=== PATIENT | female | born 1955 | race African-American/Black ===

== ENCOUNTER → 2017-03-11 | Outpatient (CLI) | payer OTHER ==
[~2017-03-11] VITALS: Ht 157.5 cm; Wt 56.7 kg
[~2017-03-11] MED LIST: ADVAIR 250-501 EACH INH; AMITRIPTYLINE H10 M1; ASA5UEC PO; ASPIR 8181 MG PO; ASPIRIN325 PO; ATORVASTATIN CA40 MG PO; DEXILANT60 MG PO; DIOVAN HCT 80-1 EACH PO; EFFIENT10 MG PO; HYDROCHLOROTHIA25 M1 PO; KAPIDEX30 MG PO; LOPRESSOR; LOPRESSOR50 PO; LORTAB 5 MG/5001 TA1 PO; MECLIZINE 25 MG25 M1 PO; NITROSTAT0.4 M1 SL; PHENERGAN 25 MG25 M1 PO; VENTOLIN HFA 1818 GM INH; ZOCOR40 MG PO
--- NOTE | ~2017-03-11 | P ---
[facility] [place] [address] PROCEDURE REPORT Name: CHE STEWARD Cory Room #: REG [facility]#: [id number] Admission: 03/11/17 Attend Phys: Levi Lawrence Discharge: Date of : 55 Report #: [id number] THIS REPORT FOR: //name// CC: Levi Schuster MD DATE OF SERVICE: 03/11/2017 PROCEDURE PERFORMED: Colonoscopy with biopsies. HISTORY OF PRESENT ILLNESS: The patient is a 61-year-old female with a history of colon polyps on colonoscopy in 2010, which was a tubular adenoma. She is here for a followup. She denies any symptoms. No family history of colon cancer. PROCEDURE: The risks and benefits of the procedure were explained to the patient, those risks including, but not limited to bleeding, perforation, the risk of sedation. She understood these risks and gave informed consent. Sedation was given using propofol per anesthesia. Next, a digital rectal exam was initially performed, which was normal. Next, using a standard Fujinon colonoscope, the scope was placed in the patient's anus and advanced under direct vision to the cecum. The overall prep was good. The cecum and ileocecal valve were normal in appearance. The ascending, transverse, and descending colon were all normal. Multiple diverticula were noted in the sigmoid colon, no evidence of inflammation. A single 4-mm sessile polyp was noted in the sigmoid colon and removed with cold forceps. The rectal mucosa was normal. On retroflexion, no abnormalities were noted. The scope was then withdrawn and the procedure terminated. The patient tolerated the procedure well. IMPRESSION: 1. Sigmoid diverticulosis. 2. Sigmoid colon polyp. 3. Otherwise, normal colonoscopy. RECOMMENDATIONS: 1. Await biopsy results. 2. If polyp is hyperplastic, repeat colonoscopy in 10 years; if adenomatous polyp, repeat in 5 years. Thank you for allowing me to participate in her care. By: 0901 [id number] Levi Delgadillo MD /nt
--- NOTE | ~2017-03-11 | EKG ---
[address] [address] ELECTROCARDIOGRAM REPORT Name: CHE STEWARD Cory [id number] Admission: 03/11/17 Attend Phys: Levi Lawrence Discharge: Date of : 55 Report #: [id number] THIS REPORT FOR: //name// [facility] Test Date: 2017-03-11 Test Time: 07:42:38 Pat Name: CHE STEWARD Department: Room: Gender: F Stamp Analyst: PADMINI : 1955 Requested By: Levi Delgadillo Order Number: [id number] MD: Rishi Haney Measurements Intervals [place] Rate: 62 P: 55 VT: 145 QRS: -42 QRSD: 96 T: 46 QT: 411 QTc: 418 Interpretive Statements Sinus rhythm Left axis deviation Compared to ECG 05/03/2016 22:59:43 Left-axis deviation now present ST and T wave abnormality is no longer present Electronically Signed On 03-11-2017 8:02:48 CDT by Rishi Haney [email or web address] <ELECTRONICALLY SIGNED> By: Rishi Haney MD, [facility] [id number] Rishi Haney MD, [facility] /EPI
== END | disposition home or self-care (01) ==
LOC: GI 06:53
DX: D12.5 Benign neoplasm of sigmoid colon (principal); K57.30 Diverticulosis of large intestine without perforation or abscess without bleeding; Z86.010 Personal history of colon polyps; J45.909 Unspecified asthma, uncomplicated; I10 Essential (primary) hypertension; I20.9 Angina pectoris, unspecified; E78.00 Pure hypercholesterolemia, unspecified; K21.9 Gastro-esophageal reflux disease without esophagitis; E11.9 Type 2 diabetes mellitus without complications; Z98.51 Tubal ligation status

== ENCOUNTER → 2018-04-26 | Outpatient (CLI) | payer OTHER ==
[~2018-04-26] VITALS: Ht 157.5 cm; Wt 59.9 kg
[~2018-04-26] MED LIST changes: +ASPIR-LOW81 MG PO; +CRESTOR20 MG PO; +IMDUR 30 MG TAB30 M1 PO; +PLAVIX 75 MG TA75 M1 PO; +TOPROL XL25 MG PO
--- NOTE | ~2018-04-26 | CATHLAB ---
[facility] [address] [place] [address] INVASIVE PROCEDURE REPORT Name: CHE STEWARD Room #: REG [facility]#: [id number] Admission: 04/26/18 Attend Phys: Fabrice Chew Discharge: Date of : 55 Date of Service: 05/01/18 1320 Report #: [id number] THIS REPORT FOR: //name// APPROVED REPORT Study performed: 04/26/2018 10:41:52 Patient Details Patient Status: Out-Patient Room #: The patient is a 62 year-old female Event Personnel Fabrice Morgan Home Care Chaplain, Liu Abarca RN, Nadine Cormier RTR, DONN De Leon, Chaim Nieto Monitor Procedures Performed Coronary Angiography Only [id number] CHRIS FFR [id number] FFR, supervision of conscious sedation Indication Positive stress test, Chest pain Procedure Narrative The Right Groin^ was infiltrated with 1% Lidocaine subcutaneous anesthesia. A PINNACLE 6FR Sheath #[id number] sheath was inserted into the . Coronary angiography was performed using coronary diagnostic catheters. The left coronary system was accessed and visualized with a JL4 catheter. The left ventricle was accessed and visualized with a PIGTAIL catheter. Left ventricular/Aortic Valve gradient assessed via catheter pullback. Closure device was deployed with a 6 Fr MYNXGRIP 6/7F #[id number]. The patient tolerated the procedure well and there were no complications associated with the procedure. Intraoperative Conscious Sedation Sedation start time: 12.00 Case end Time: 12.33 Versed 2 mg Fluoro Time: 4.00 minutes Dose: DAP 2072 cGycm2 287 mGy Contrast Type and Amount: Omnipaque 655 ml Coronary Angiography The patient's coronary anatomy is right dominant. [facility] [address] [place] [address] INVASIVE PROCEDURE REPORT Name: CHE STEWARD Room #: REG [facility]#: [id number] Admission: 04/26/18 Attend Phys: Fabrice Chew Discharge: Date of : 55 Date of Service: 05/01/18 1320 Report #: [id number] Diagnostic Cath Left Main Normal origin and caliber bifurcates left anterior descending left circumflex free of high-grade disease LAD Moderate caliber type II vessel which in its proximal course on one view appears to have a proximal lesion. The vessel continues on without any flow limitation giving rise to septal and diagonal branches as it courses in the anterior interventricular sulcus towards the apex and terminating there are minor irregularities noted Diagonal 1 Small-caliber vessel without significant high-grade lesions Circumflex Moderate caliber vessel with luminal irregularities giving rise to marginal branches free of high-grade disease OM1 Small caliber vessel with luminal irregularity present without flow-limiting lesions noted OM2 Small-caliber vessel without significant obstructive lesions Right Coronary Previous high-grade diffuse disease noted R PDA Visualized from left to right collaterals which are quite some numerous with the PDA been a small string-like vessel. Left Ventriculography Left Ventriculography was not performed. Hemodynamics The aortic pressure is 154/59 mmHg with a mean of 85 mmHg. The left ventricular pressure is 140/8 mmHg with a mean of mmHg. The left ventricular end diastolic pressure is 16 mmHg. There was no gradient across the aortic valve upon pullback. Pullback from the left ventricle to the aorta revealed no gradient across the aortic valve. PCI Technique Lesion A LAUNCHER 6FR JL4 #[id number] Guide Catheter was used to engage the ostium. A StemBioSys Pressure Wire 175 cm [id number] Interventional Guidewire was used to cross the lesion. Conclusion 1. Coronary artery disease single vessel involving a highly diffuse but collateralized right coronary artery 2. Fractional flow reserve assessment negative for ischemia involving the proximal LAD 3. Normal hemodynamics [facility] [address] [place] [address] INVASIVE PROCEDURE REPORT Name: CHE STEWARD Room #: REG CL [facility]#: [id number] Admission: 04/26/18 Attend Phys: Fabrice Chew Discharge: Date of : 55 Date of Service: 05/01/18 1320 Report #: [id number] Recommendations Cardiac Risk Reduction Program <ELECTRONICALLY SIGNED> By: Fabrice Morgan MD 05/01/18 1320 1320 1320 Fabrice Morgan MD /INF
--- NOTE | ~2018-04-26 | EKG ---
[address] [place] [address] ELECTROCARDIOGRAM REPORT Name: CHE STEWARD [id number] Admission: 04/26/18 Attend Phys: Fabrice Morgan Discharge: Date of : 55 Report #: [id number] THIS REPORT FOR: //name// [facility] Test Date: 2018-04-26 Test Time: 10:18:04 Pat Name: CHE STEWARD Department: Room: Gender: F Continuing Education Instructor: : 1955 Requested By: Fabrice Morgan Order Number: [id number] MD: Rishi Haney Measurements Intervals [place] Rate: 55 P: 46 [place]: 160 QRS: -39 QRSD: 99 T: 38 QT: 438 QTc: 419 Interpretive Statements Sinus rhythm Abnormal T, consider ischemia, anterior leads Compared to ECG 03/11/2017 07:42:38 T-wave abnormality now present Electronically Signed On 04-27-2018 8:00:33 CDT by Rishi Haney [email or web address] <ELECTRONICALLY SIGNED> By: Rishi Haney MD, [facility] 04/27/18 0800 [id number] Rishi Haney MD, [facility] /EPI
[2018-04-26 10:07] VITALS: BP 134/67
[2018-04-26 10:28] LABS: HEMOGLOBIN 12.6 gm/dL (12.0-15.0); MCH 27.7 pg (26.0-34.0); MCHC 33.1 g/dL (28.0-37.0); MCV 83.8 fL (80.0-100.0); RBC 4.54 mil/uL (4.20-5.00); RDW 14.1 % (10.5-14.5); WBC 3.4 thou/uL (4.0-11.0)
[2018-04-26 10:32] LABS: CALCIUM 9.6 mg/dL (8.5-10.1); CREATININE 0.9 mg/dL (0.6-1.0); POTASSIUM 3.2 mmol/L (3.5-5.1)
[2018-04-26 10:37] LABS: PROTIME 10.1 Seconds (9.3-11.4)
== END | disposition home or self-care (01) ==
LOC: CATH 07:47
PROVIDERS: Internal Medicine
DX: I25.10 Atherosclerotic heart disease of native coronary artery without angina pectoris (principal); I10 Essential (primary) hypertension; K21.9 Gastro-esophageal reflux disease without esophagitis; E11.9 Type 2 diabetes mellitus without complications; J45.909 Unspecified asthma, uncomplicated; E78.00 Pure hypercholesterolemia, unspecified; Z82.49 Family history of ischemic heart disease and other diseases of the circulatory system; Z91.041 Radiographic dye allergy status; Z98.890 Other specified postprocedural states; Z90.710 Acquired absence of both cervix and uterus; Z88.8 Allergy status to other drugs, medicaments and biological substances; Z79.82 Long term (current) use of aspirin; Z98.51 Tubal ligation status; Z79.899 Other long term (current) drug therapy

== ENCOUNTER → 2020-08-06 | Outpatient (CLI) | payer MEDICARE | LOC: RAD 11:26 | PROVIDERS: ATTEND Family Medicine | DX: Z12.31 Encounter for screening mammogram for malignant neoplasm of breast (principal) ==

== ENCOUNTER → 2021-04-06 | Outpatient (CLI) | payer OTHER | LOC: NUC 13:19 | PROVIDERS: ATTEND Family Medicine | DX: M81.0 Age-related osteoporosis without current pathological fracture (principal); N95.9 Unspecified menopausal and perimenopausal disorder ==

== ENCOUNTER → 2021-08-31 | Outpatient (CLI) | payer OTHER | LOC: BC 09:48 | PROVIDERS: ATTEND Family Medicine | DX: Z12.31 Encounter for screening mammogram for malignant neoplasm of breast (principal); N64.89 Other specified disorders of breast ==